=== PATIENT | male | born 1985 | race Hispanic/Latino ===

== ENCOUNTER 2022-04-01 16:11 | Emergency (ER) | payer SELFPAY ==
[2022-04-01] MEDS ORDERED: Mag-Al 1200 mg/1200 mg/30 ML UDCUP ONE (18:51)
[2022-04-01] MEDS ORDERED: Lidocaine Viscous Sol 2% 15 ml UD Cup ONE (18:51)
[2022-04-01 18:53] LABS: #Lymphocytes 1.5 thou/uL (1.20-3.40); #Monocytes 0.7 thou/uL (0.11-0.59); #Neutrophils 8.8 thou/uL (1.40-6.50); %Basophils 0.3 % (0.0-1.0); %Eosinophils 0.2 % (0.0-10.0); %Lymphocytes 13.4 % (21.0-51.0); %Monocytes 6.4 % (0.0-10.0); %Neutrophils 79.8 % (42.0-75.0); Hemoglobin 13.4 g/dL (14.0-18.0); Mean Corpuscular HGB CONC 33.8 g/dL (32.0-36.0); Mean Corpuscular Hemoglobin 26.3 pg (27.0-31.0); Mean Corpuscular Volume 77.9 fL (78.0-98.0); Mean Platelet Volume 8.2 fL (7.4-10.4); Platelet Count 303 thou/uL (130-400); RBC Distribution Width 12.3 % (11.5-14.5); Red Blood Cell (RBC) Count 5.08 mill/uL (4.70-6.10)
[2022-04-01 19:16] LABS: ALT (SGPT) 20 U/L (8-55); AST (SGOT) 41 U/L (5-34); Albumin 4.7 g/dL (3.5-5.0); Alkaline Phosphatase 100 U/L (40-110); Anion Gap 15 mmol/L (10-20); BUN (Urea Nitrogen) 4 mg/dL (8.9-20.6); Bilirubin, Total 0.7 mg/dL (0.2-1.2); CK (CPK) 962 U/L (30-200); Calc. Creatinine Clearance 0 mL/min (70-130); Calcium 9.8 mg/dL (7.8-10.44); Carbon Dioxide 29 mmol/L (22-29); Chloride 97 mmol/L (98-107); Estimated GFR 117; Globulin 3.8 g/dL (2.4-3.5); Glucose 114 mg/dL (70-105); Lipase 26 U/L (8-78); Potassium 3.3 mmol/L (3.5-5.1); Protein, Total 8.5 g/dL (6.0-8.3); Sodium 138 mmol/L (136-145)
== END 2022-04-01 19:37 | disposition home or self-care (01) ==
LOC: ERS 16:11
DX: K29.70 Gastritis, unspecified, without bleeding (principal); E86.0 Dehydration
CPT/HCPCS: 71045; 80053; 82550; 83690; 84484; 85025; 93005

== ENCOUNTER 2022-05-12 11:57 | Emergency (ER) | payer SELFPAY | END 2022-05-12 15:00 | disposition home or self-care (01) | LOC: ERS 11:57 | DX: J06.9 Acute upper respiratory infection, unspecified (principal); Z20.822 Contact with and (suspected) exposure to COVID-19 | CPT/HCPCS: 71045; U0003; U0005 ==

== ENCOUNTER 2022-10-07 19:03 | Emergency (ER) | payer SELFPAY ==
[2022-10-07 19:42] LABS: #Monocytes 0.4 thou/uL (0.11-0.59); #Neutrophils 3.3 thou/uL (1.40-6.50); %Basophils 0.2 % (0.0-1.0); %Eosinophils 0.4 % (0.0-10.0); %Lymphocytes 21.7 % (21.0-51.0); %Monocytes 8.1 % (0.0-10.0); %Neutrophils 69.5 % (42.0-75.0); Hemoglobin 14.2 g/dL (14.0-18.0); Mean Corpuscular HGB CONC 34.1 g/dL (32.0-36.0); Mean Corpuscular Hemoglobin 28.3 pg (27.0-31.0); Mean Corpuscular Volume 83.1 fl (78.0-98.0); Mean Platelet Volume 7.6 fL (7.4-10.4); Platelet Count 204 10x3/uL (130-400); RBC Distribution Width 15.9 % (11.5-14.5); Red Blood Cell (RBC) Count 5.02 mill/uL (4.70-6.10); White Blood Cell (WBC) Count 4.8 10x3/uL (4.8-10.8)
[2022-10-07 20:01] LABS: ALT (SGPT) 96 U/L (8-55); AST (SGOT) 112 U/L (5-34); Albumin 4.6 g/dL (3.5-5.0); Alkaline Phosphatase 127 U/L (40-110); Anion Gap 19 mmol/L (10-20); BUN (Urea Nitrogen) 5 mg/dL (8.9-20.6); Bilirubin, Total 0.5 mg/dL (0.2-1.2); Calc. Creatinine Clearance 0 mL/min (70-130); Calcium 9.5 mg/dL (7.8-10.44); Carbon Dioxide 23 mmol/L (22-29); Chloride 99 mmol/L (98-107); Estimated GFR 117; Globulin 3.4 g/dL (2.4-3.5); Glucose 93 mg/dL (70-105); Potassium 3.6 mmol/L (3.5-5.1); Sodium 137 mmol/L (136-145)
[2022-10-07] MEDS ORDERED: Famotidine 20 MG TAB ONE (22:33)
[2022-10-07] MEDS ORDERED: Ondansetron ODT 4 MG TAB ONE (22:33)
[2022-10-07] MEDS ORDERED: Lidocaine Viscous Sol 2% 15 ml UD Cup ONE (22:33)
[2022-10-07] MEDS ORDERED: Mag-Al 1200 mg/1200 mg/30 ML UDCUP ONE (22:33)
== END 2022-10-07 23:58 | disposition home or self-care (01) ==
LOC: ERS 19:03
DX: K29.20 Alcoholic gastritis without bleeding (principal); K20.90 Esophagitis, unspecified without bleeding; I10 Essential (primary) hypertension
CPT/HCPCS: 36415; 71045; 80053; 83690; 84484; 85025; 93005; Q0162

== ENCOUNTER 2024-08-14 13:27 | Emergency (ER) | payer SELFPAY ==
[2024-08-14] MEDS ORDERED: Ketorolac Tromethamine 30 MG (1 mL) VIAL ONE (15:09)
[2024-08-14] MEDS ORDERED: Acetaminophen 500 MG TAB ONE (15:09)
== END 2024-08-14 15:38 | disposition home or self-care (01) ==
LOC: ERS 13:27
DX: G44.209 Tension-type headache, unspecified, not intractable (principal)
CPT/HCPCS: 93005; 96372; 99284; J1885

== ENCOUNTER 2024-08-15 12:44 | Emergency (ER) | payer SELFPAY ==
[2024-08-15] MEDS ORDERED: Acetaminophen 500 MG TAB ONE (13:32)
[2024-08-15] MEDS ORDERED: Ketorolac Tromethamine 30 MG (1 mL) VIAL ONE (13:41)
[2024-08-15 13:51] LABS: #Basophils Less than 0.03 10x3/uL (0.0-0.2); #Eosinophils Less than 0.03 10x3/uL (0.0-0.7); %Basophils 0.2 % (0.0-1.0); %Lymphocytes 9.6 % (21.0-51.0); %Neutrophils 83.8 % (42.0-75.0); Hematocrit 42.6 % (42.0-52.0); Mean Corpuscular HGB CONC 35.2 g/dL (32.0-36.0); Mean Corpuscular Volume 79.6 fL (78.0-98.0); Mean Platelet Volume 10.3 fL (7.4-10.4); Platelet Count 262 10x3/uL (130-400); RBC Distribution Width 13.6 % (11.5-14.5); Red Blood Cell (RBC) Count 5.35 mill/uL (4.70-6.10)
[2024-08-15 14:11] LABS: ALT (SGPT) 17 U/L (8-55); AST (SGOT) 20 U/L (5-34); Albumin 4.4 g/dL (3.5-5.0); Alkaline Phosphatase 135 U/L (40-110); Anion Gap 12 mmol/L (10-20); BUN (Urea Nitrogen) 6 mg/dL (8.9-20.6); Bilirubin, Total 0.3 mg/dL (0.2-1.2); Calc. Creatinine Clearance 0 mL/min (70-130); Calcium 9.8 mg/dL (7.8-10.44); Carbon Dioxide 25 mmol/L (22-29); Chloride 108 mmol/L (98-107); Estimated GFR 116; Globulin 4.1 g/dL (2.4-3.5); Glucose 114 mg/dL (70-105); Potassium 3.1 mmol/L (3.5-5.1); Protein, Total 8.5 g/dL (6.0-8.3); Sodium 142 mmol/L (136-145)
[2024-08-15 14:15] LABS: Troponin I Less than 0.010 ng/mL (< 0.028)
== END 2024-08-15 15:47 | disposition home or self-care (01) ==
LOC: ERS 12:44
DX: R07.9 Chest pain, unspecified (principal); R51.9 Headache, unspecified
CPT/HCPCS: 71046; 80053; 84484; 85025; 87081; 87428; 87430; 93005; 96361; 96374; J1885